=== PATIENT | male | born 1945 | race Caucasian/White ===

== ENCOUNTER 2019-09-14 09:15 | Inpatient (IN) ==
[2019-09-14] MEDS ORDERED: Ondansetron 4 MG/2 ML VIAL IVP ONE (09:20)
[2019-09-14] MEDS ORDERED: *HR* FentaNYL (PF) 100 MCG/2 ML VIAL IVP ONE (09:20)
[2019-09-14] MEDS ORDERED: Pantoprazole 40 MG VIAL IVP ONE (09:33)
[2019-09-14 10:03] LABS: Basophils % 0.4 %; Eosinophils % 0.4 %; Hematocrit 48.8 % (37.5-50.1); Hemoglobin 16.1 g/dL (12.9-16.9); Immature Granulocytes % 0.4 % (0-4); Lymphocytes # 1.3 K/mcL (0.6-4.6); Lymphocytes % 14.4 %; Mean Corpuscular Hemoglobin 31.3 pg (28.0-33.3); Mean Corpuscular Volume 94.8 fL (83.0-100.0); Mean Platelet Volume 12.5 fL (9.4-12.4); Monocytes # 1.1 K/mcL (0.0-1.3); Monocytes % 12.1 %; Neutrophils # 6.4 K/mcL (1.6-8.9); Platelet Count 240 K/mcL (140-400); Red Blood Count 5.15 M/mcL (4.19-5.50); Segmented Neutrophils % 72.3 %; White Blood Count 8.9 K/mcL (4.3-11.1)
[2019-09-14 10:14] LABS: Alanine Aminotransferase 41 Units/L (7-52); Alkaline Phosphatase 103 Units/L (34-104); Aspartate Amino Transferase 45 Units/L (13-39); BUN/Creatinine Ratio 22 (6-26); Bilirubin,Total 1.3 mg/dL (0.3-1.0); Blood Urea Nitrogen 29 mg/dL (8-23); Calcium 9.5 mg/dL (8.6-10.3); Carbon Dioxide 30 mEq/L (23-29); Chloride 91 mEq/L (98-107); Globulin 3.9 g/dL (2.4-3.5); Glucose 203 mg/dL (70-105); Lipase 41 Units/L (11-82); Osmolality,Calculated 284 (280-300); Potassium 4.2 mEq/L (3.5-5.1); Sodium 131 mEq/L (136-145); Total Protein 7.9 g/dL (6.4-8.9); eGFR For African Americans > 60 (> 60); eGFR For Non-African Americans 54 (> 60)
[2019-09-14 10:23] LABS: INR 1.3; Prothrombin Time 14.2 Seconds (9.4-12.1)
[2019-09-14] MEDS ORDERED: Promethazine 12.5 MG in 0.9 % Sodium Chloride 50 ML IVPB ONE (11:37)
[2019-09-14] MEDS ORDERED: 0.9 % Sodium Chloride 500 ML IVC ONE (12:06)
[2019-09-14] MEDS: Ondansetron 4 MG/2 ML VIAL IVP PRN (16:50)
[2019-09-15] MEDS: Ondansetron 4 MG/2 ML VIAL IVP PRN ×3 (00:44→22:22)
[2019-09-15 05:01] LABS: Hematocrit 46.2 % (37.5-50.1); Hemoglobin 15.3 g/dL (12.9-16.9); Mean Corpuscular HGB Conc 33.1 g/dL (31.6-35.5); Mean Corpuscular Hemoglobin 31.9 pg (28.0-33.3); Mean Corpuscular Volume 96.3 fL (83.0-100.0); Mean Platelet Volume 12.3 fL (9.4-12.4); Platelet Count 240 K/mcL (140-400); Red Cell Distribution Width 14.3 % (11.5-14.5); White Blood Count 8.9 K/mcL (4.3-11.1)
[2019-09-15 05:11] LABS: INR 1.2
[2019-09-15 05:21] LABS: Albumin 3.7 g/dL (3.5-5.7); Albumin/Globulin Ratio 1.1 (1.1-2.2); Bilirubin,Direct 0.4 mg/dL (0.0-0.2); Bilirubin,Indirect 0.7 mg/dL (0.0-1.0); Bilirubin,Total 1.1 mg/dL (0.3-1.0); Calcium 8.9 mg/dL (8.6-10.3); Globulin 3.4 g/dL (2.4-3.5); Magnesium 2.4 mg/dL (1.6-2.6); Potassium 3.8 mEq/L (3.5-5.1); Total Protein 7.1 g/dL (6.4-8.9)
[2019-09-15] MEDS ORDERED: *HR* Dextrose 50 % in Water (Syg) 50 ML SYRINGE IVP PRN ×2 (11:46→14:51)
[2019-09-15] MEDS ORDERED: D5% in Water 1,000 ML IVC PRN ×2 (11:46→14:51)
[2019-09-15] MEDS ORDERED: Dextrose Gel 15 GM/37.5 ML TUBE PO PRN ×4 (11:46→14:51)
[2019-09-15] MEDS ORDERED: Insulin LISPRO 300 UNITS/3 ML VIAL SQ SCH ×2 (12:00→18:00)
[2019-09-15] MEDS ORDERED: 0.9 % Sodium Chloride 1,000 ML IVC SCH ×2 (12:00→14:51)
[2019-09-15] MEDS ORDERED: Famotidine 20 MG/2 ML VIAL ONE (12:52)
[2019-09-15] MEDS ORDERED: Acetaminophen IV 1,000 MG/100 ML INFUS..BTL ONE (12:52)
[2019-09-15] MEDS ORDERED: Dexamethasone 4 MG/ML VIAL ONE (12:55)
[2019-09-15] MEDS ORDERED: *HR* Succinylcholine 200 MG/10 ML VIAL IVP ONE (12:55)
[2019-09-15] MEDS ORDERED: Lidocaine -MPF 2% 2 ML VIAL ONE (12:55)
[2019-09-15] MEDS ORDERED: Ondansetron 4 MG/2 ML VIAL ONE ×2 (12:55→14:35)
[2019-09-15] MEDS ORDERED: *HR* Propofol 200 MG/20 ML VIAL IVP ONE (12:55)
[2019-09-15] MEDS ORDERED: Lidocaine -MPF 4% 5 ML AMPUL ONE (12:55)
[2019-09-15] MEDS ORDERED: *HR* Rocuronium Bromide 50 MG/5 ML VIAL ONE (12:56)
[2019-09-15] MEDS ORDERED: CefOXitin 2,000 MG VIAL ONE (13:00)
[2019-09-15] MEDS ORDERED: *HR* FentaNYL (PF) 100 MCG/2 ML VIAL ONE (13:09)
[2019-09-15] MEDS ORDERED: *HR* PHENYLEPHRINE 1,000 MCG/10 ML SYRINGE IVP ONE ×2 (13:30→13:51)
[2019-09-15] MEDS ORDERED: EPHEDrine 50 MG/ML VIAL ONE (13:46)
[2019-09-15] MEDS ORDERED: Ondansetron 4 MG/2 ML VIAL IVP ONE (14:15)
[2019-09-15] MEDS ORDERED: *HR* HYDROmorphone PF 0.5 MG/0.5 ML SYRINGE IVP PRN (14:15)
[2019-09-15] MEDS: *HR* Heparin 5,000 UNIT/ML VIAL SQ SCH (16:45)
[2019-09-15] MEDS: Metoprolol XL (24 HR) Succ 25 MG TAB.ER.24H PO SCH (16:46)
[2019-09-15] MEDS ORDERED: Metoprolol XL (24 HR) Succ 25 MG TAB.ER.24H PO SCH (18:00)
[2019-09-15] MEDS ORDERED: *HR* Heparin 5,000 UNIT/ML VIAL SQ SCH (18:00)
[2019-09-15] MEDS: Budesonide/Formoterol 160/4.5 1 PUFF INH IH SCH (21:54)
[2019-09-15] MEDS ORDERED: Budesonide/Formoterol 160/4.5 1 PUFF INH IH SCH (22:00)
[2019-09-16 02:06] LABS: Basophils # 0.1 K/mcL (0.0-0.2); Basophils % 0.6 %; Eosinophils % 0.4 %; Hematocrit 47.3 % (37.5-50.1); Hemoglobin 15.6 g/dL (12.9-16.9); Immature Granulocytes % 0.3 % (0-4); Lymphocytes # 0.7 K/mcL (0.6-4.6); Lymphocytes % 8.2 %; Mean Corpuscular Hemoglobin 32.3 pg (28.0-33.3); Mean Corpuscular Volume 97.9 fL (83.0-100.0); Mean Platelet Volume 12.1 fL (9.4-12.4); Monocytes # 0.6 K/mcL (0.0-1.3); Monocytes % 6.7 %; Neutrophils # 7.6 K/mcL (1.6-8.9); Platelet Count 273 K/mcL (140-400); Red Blood Count 4.83 M/mcL (4.19-5.50); Red Cell Distribution Width 14.2 % (11.5-14.5); Segmented Neutrophils % 83.8 %; White Blood Count 9.1 K/mcL (4.3-11.1)
[2019-09-16 02:25] LABS: BUN/Creatinine Ratio 28 (6-26); Blood Urea Nitrogen 36 mg/dL (8-23); Calcium 8.9 mg/dL (8.6-10.3); Carbon Dioxide 24 mEq/L (23-29); Chloride 97 mEq/L (98-107); Glucose 146 mg/dL (70-105); Osmolality,Calculated 287 (280-300); Potassium 4.3 mEq/L (3.5-5.1); Sodium 133 mEq/L (136-145); eGFR For African Americans > 60 (> 60); eGFR For Non-African Americans 56 (> 60)
[2019-09-16] MEDS ORDERED: *HR* Promethazine 25 MG/ML VIAL IVP ONE (02:38)
[2019-09-16] MEDS: *HR* Heparin 5,000 UNIT/ML VIAL SQ SCH ×2 (05:36→17:17)
[2019-09-16] MEDS: Budesonide/Formoterol 160/4.5 1 PUFF INH IH SCH ×2 (07:30→20:07)
[2019-09-16] MEDS: Tiotropium 18 MCG inhalation IH SCH (07:30)
[2019-09-16] MEDS: Insulin LISPRO 300 UNITS/3 ML VIAL SQ SCH ×4 (07:54→21:31)
[2019-09-16] MEDS: Cholecalciferol (D-3) 1,000 UNIT (25MCG) TABLET PO SCH (07:55)
[2019-09-16] MEDS: Aspirin Enteric Coated 81 MG Tablet PO SCH (07:55)
[2019-09-16] MEDS: allopurinoL 100 MG TABLET PO SCH (07:55)
[2019-09-16] MEDS: Metoprolol XL (24 HR) Succ 50 MG TAB.ER.24H PO SCH (07:55)
[2019-09-16] MEDS: Ondansetron 4 MG/2 ML VIAL IVP PRN (09:00)
[2019-09-16] MEDS ORDERED: Tiotropium 18 MCG inhalation IH SCH (09:00)
[2019-09-16] MEDS ORDERED: Cholecalciferol (D-3) 1,000 UNIT (25MCG) TABLET PO SCH (09:00)
[2019-09-16] MEDS ORDERED: Metoprolol XL (24 HR) Succ 50 MG TAB.ER.24H PO SCH (09:00)
[2019-09-16] MEDS ORDERED: Aspirin Enteric Coated 81 MG Tablet PO SCH (09:00)
[2019-09-16] MEDS ORDERED: allopurinoL 100 MG TABLET PO SCH (09:00)
[2019-09-16] MEDS: polyethylene glycoL 3350 17 GM POWD.PACK PO SCH (09:06)
[2019-09-16] MEDS ORDERED: *HR* Promethazine 25 MG/ML VIAL IVP PRN (12:30)
[2019-09-16] MEDS ORDERED: Promethazine 25 MG in 0.9 % Sodium Chloride 50 ML IVPB PRN (12:38)
[2019-09-16] MEDS: Metoprolol XL (24 HR) Succ 25 MG TAB.ER.24H PO SCH (17:17)
[2019-09-16] MEDS ORDERED: Melatonin 3 MG TABLET PO ONE (22:50)
[2019-09-17] MEDS: *HR* Heparin 5,000 UNIT/ML VIAL SQ SCH ×2 (05:38→16:53)
[2019-09-17 07:01] LABS: Basophils # 0.1 K/mcL (0.0-0.2); Basophils % 0.8 %; Eosinophils # 0.2 K/mcL (0.0-0.6); Eosinophils % 2.4 %; Hematocrit 42.7 % (37.5-50.1); Immature Granulocytes % 0.4 % (0-4); Lymphocytes # 1.1 K/mcL (0.6-4.6); Lymphocytes % 14.4 %; Mean Corpuscular HGB Conc 31.6 g/dL (31.6-35.5); Mean Corpuscular Hemoglobin 30.9 pg (28.0-33.3); Mean Corpuscular Volume 97.7 fL (83.0-100.0); Monocytes % 13.8 %; Neutrophils # 5.1 K/mcL (1.6-8.9); Platelet Count 174 K/mcL (140-400); Red Blood Count 4.37 M/mcL (4.19-5.50); Red Cell Distribution Width 14.4 % (11.5-14.5); Segmented Neutrophils % 68.2 %; White Blood Count 7.5 K/mcL (4.3-11.1)
[2019-09-17 07:03] LABS: Hemoglobin 13.5 g/dL (12.9-16.9)
[2019-09-17 07:19] LABS: Calcium 8.2 mg/dL (8.6-10.3)
[2019-09-17] MEDS: Budesonide/Formoterol 160/4.5 1 PUFF INH IH SCH ×2 (07:50→20:39)
[2019-09-17] MEDS: Tiotropium 18 MCG inhalation IH SCH (07:54)
[2019-09-17] MEDS: Aspirin Enteric Coated 81 MG Tablet PO SCH (08:31)
[2019-09-17] MEDS: polyethylene glycoL 3350 17 GM POWD.PACK PO SCH (08:32)
[2019-09-17] MEDS: Cholecalciferol (D-3) 1,000 UNIT (25MCG) TABLET PO SCH (08:32)
[2019-09-17] MEDS: Metoprolol XL (24 HR) Succ 50 MG TAB.ER.24H PO SCH (08:32)
[2019-09-17] MEDS: Insulin LISPRO 300 UNITS/3 ML VIAL SQ SCH ×4 (08:32→20:38)
[2019-09-17] MEDS: allopurinoL 100 MG TABLET PO SCH (08:32)
[2019-09-17] MEDS ORDERED: Mag Hydrox/Al Hydrox/Simeth 30 ML UDC PO PRN (16:39)
[2019-09-17] MEDS: Ondansetron 4 MG/2 ML VIAL IVP PRN (16:49)
[2019-09-17] MEDS: Metoprolol XL (24 HR) Succ 25 MG TAB.ER.24H PO SCH (16:54)
[2019-09-17] MEDS ORDERED: Promethazine 25 MG in 0.9 % Sodium Chloride 50 ML IVPB PRN (19:30)
[2019-09-18] MEDS: *HR* Heparin 5,000 UNIT/ML VIAL SQ SCH ×2 (05:11→17:00)
[2019-09-18 05:42] LABS: Hematocrit 42.2 % (37.5-50.1); Hemoglobin 13.5 g/dL (12.9-16.9); Mean Corpuscular Hemoglobin 31.3 pg (28.0-33.3); Mean Corpuscular Volume 97.7 fL (83.0-100.0); Mean Platelet Volume 11.9 fL (9.4-12.4); Platelet Count 241 K/mcL (140-400); Red Blood Count 4.32 M/mcL (4.19-5.50); Red Cell Distribution Width 14.1 % (11.5-14.5); White Blood Count 8.1 K/mcL (4.3-11.1)
[2019-09-18 05:59] LABS: Calcium 8.3 mg/dL (8.6-10.3); Magnesium 2.7 mg/dL (1.6-2.6); Potassium 3.9 mEq/L (3.5-5.1)
[2019-09-18] MEDS: Budesonide/Formoterol 160/4.5 1 PUFF INH IH SCH ×2 (07:46→20:06)
[2019-09-18] MEDS: Tiotropium 18 MCG inhalation IH SCH (07:46)
[2019-09-18] MEDS: Insulin LISPRO 300 UNITS/3 ML VIAL SQ SCH ×4 (09:27→20:16)
[2019-09-18] MEDS: Aspirin Enteric Coated 81 MG Tablet PO SCH (09:32)
[2019-09-18] MEDS: Metoprolol XL (24 HR) Succ 50 MG TAB.ER.24H PO SCH (09:32)
[2019-09-18] MEDS: Cholecalciferol (D-3) 1,000 UNIT (25MCG) TABLET PO SCH (09:33)
[2019-09-18] MEDS: allopurinoL 100 MG TABLET PO SCH (09:33)
[2019-09-18] MEDS: polyethylene glycoL 3350 17 GM POWD.PACK PO SCH (09:33)
[2019-09-18] MEDS: Metoprolol XL (24 HR) Succ 25 MG TAB.ER.24H PO SCH (17:00)
[2019-09-19 03:12] LABS: BUN/Creatinine Ratio 49 (6-26); Blood Urea Nitrogen 43 mg/dL (8-23); Calcium 8.4 mg/dL (8.6-10.3); Carbon Dioxide 28 mEq/L (23-29); Chloride 96 mEq/L (98-107); Glucose 127 mg/dL (70-105); Osmolality,Calculated 288 (280-300); Potassium 3.9 mEq/L (3.5-5.1); Sodium 133 mEq/L (136-145); eGFR For African Americans > 60 (> 60); eGFR For Non-African Americans > 60 (> 60)
[2019-09-19] MEDS: *HR* Heparin 5,000 UNIT/ML VIAL SQ SCH (05:42)
[2019-09-19] MEDS: Tiotropium 18 MCG inhalation IH SCH (07:56)
[2019-09-19] MEDS: Budesonide/Formoterol 160/4.5 1 PUFF INH IH SCH (07:56)
[2019-09-19] MEDS ORDERED: Metoprolol XL (24 HR) Succ 25 MG TAB.ER.24H PO SCH (09:00)
[2019-09-19] MEDS: polyethylene glycoL 3350 17 GM POWD.PACK PO SCH (09:40)
[2019-09-19] MEDS: Aspirin Enteric Coated 81 MG Tablet PO SCH (09:43)
[2019-09-19] MEDS: allopurinoL 100 MG TABLET PO SCH (09:43)
[2019-09-19] MEDS: Insulin LISPRO 300 UNITS/3 ML VIAL SQ SCH ×2 (09:43→12:59)
[2019-09-19] MEDS: Cholecalciferol (D-3) 1,000 UNIT (25MCG) TABLET PO SCH (09:43)
[2019-09-19 14:14] VITALS: BP 122/74
== END 2019-09-19 15:34 | DRG 354 ==
LOC: 3ANU 09:15 → EMEROOARM 09:15 → SUATTDRO 13:28 → 3ANU 14:42 → SUATTDRO 09-15 16:21
PROVIDERS: ADMIT Internal Medicine; ATTEND Internal Medicine

== ENCOUNTER 2020-05-27 06:42 | Inpatient (IN) ==
[2020-05-27] MEDS ORDERED: CeFAZolin Syr 3,000MG/30 ML 3,000 MG/30 ML SYRINGE IVPB ONE (07:21)
[2020-05-27] MEDS ORDERED: Ringers Solution, Lactated 1,000 ML IVC SCH (07:30)
[2020-05-27] MEDS ORDERED: Dexamethasone 4 MG/ML VIAL ONE (07:39)
[2020-05-27] MEDS ORDERED: Lidocaine -MPF 2% 2 ML VIAL ONE (07:39)
[2020-05-27] MEDS ORDERED: *HR* Succinylcholine 200 MG/10 ML VIAL IVP ONE (07:39)
[2020-05-27] MEDS ORDERED: *HR* FentaNYL (PF) 100 MCG/2 ML VIAL ONE ×2 (07:39→10:11)
[2020-05-27] MEDS ORDERED: *HR* Rocuronium Bromide 50 MG/5 ML VIAL ONE (07:39)
[2020-05-27] MEDS ORDERED: Ondansetron 4 MG/2 ML VIAL ONE (07:39)
[2020-05-27] MEDS ORDERED: *HR* Propofol 200 MG/20 ML VIAL IVP ONE (07:40)
[2020-05-27] MEDS ORDERED: Sugammadex Sodium 200 MG/2 ML VIAL IV ONE (07:40)
[2020-05-27] MEDS ORDERED: *HR* PHENYLEPHRINE 1,000 MCG/10 ML SYRINGE IVP ONE ×2 (07:41→09:49)
[2020-05-27] MEDS ORDERED: Ketorolac 30 MG/ML VIAL ONE (07:41)
[2020-05-27] MEDS ORDERED: Lidocaine 5% OINT 35 APPL/35.44 GM TUBE TP ONE (07:52)
[2020-05-27] MEDS ORDERED: *HR* HYDROmorphone 2 MG TABLET PO PRN (08:00)
[2020-05-27] MEDS ORDERED: Famotidine 20 MG/2 ML VIAL IVP ONE (08:00)
[2020-05-27] MEDS ORDERED: *HR* Labetalol 20 MG/4 ML SYRINGE IVP PRN (08:00)
[2020-05-27] MEDS ORDERED: *HR* OxyCODONE Immed Rel 5 MG TABLET PO PRN (08:00)
[2020-05-27] MEDS ORDERED: *HR* HYDROmorphone PF 0.5 MG/0.5 ML SYRINGE IVP PRN (08:00)
[2020-05-27] MEDS ORDERED: Acetaminophen IV 1,000 MG/100 ML BAG IVPB ONE (08:00)
[2020-05-27] MEDS ORDERED: Naloxone 0.4 MG/ML INJ IVP PRN (10:31)
[2020-05-27] MEDS ORDERED: *HR* HYDROcodone/Acet 5/325 mg TABLET PO PRN (10:31)
[2020-05-27] MEDS ORDERED: Ondansetron 4 MG/2 ML VIAL IVP PRN ×2 (10:31→11:56)
[2020-05-27] MEDS ORDERED: 0.9 % Sodium Chloride 1,000 ML IVC SCH (10:45)
[2020-05-27] MEDS ORDERED: *HR* Dextrose 50 % in Water (Vial) 50 ML VIAL IVP PRN (11:56)
[2020-05-27] MEDS ORDERED: Dextrose Gel 15 GM/37.5 ML TUBE PO PRN ×2 (11:56)
[2020-05-27] MEDS ORDERED: D5% in Water 1,000 ML IVC PRN (11:56)
[2020-05-27] MEDS ORDERED: Ipratropium/Albuterol Neb 3 ML IH SCH (12:00)
[2020-05-27] MEDS ORDERED: Ketorolac 15 MG/ML VIAL IVP SCH (12:00)
[2020-05-27] MEDS: Ketorolac 15 MG/ML VIAL IVP SCH ×2 (12:18→18:06)
[2020-05-27] MEDS: Insulin LISPRO 300 UNITS/3 ML VIAL SUBQ SCH ×3 (12:19→20:44)
[2020-05-27] MEDS: 0.9 % Sodium Chloride 1,000 ML IVC SCH (12:19)
[2020-05-27] MEDS: *HR* Heparin 5,000 UNIT/ML VIAL SQ SCH ×2 (12:20→20:56)
[2020-05-27] MEDS ORDERED: *HR* Heparin 5,000 UNIT/ML VIAL SQ SCH (14:00)
[2020-05-27] MEDS: Ipratropium/Albuterol Neb 3 ML IH SCH ×4 (14:14→23:41)
[2020-05-27] MEDS: *HR* HYDROcodone/Acet 5/325 mg TABLET PO PRN ×2 (14:39→20:50)
[2020-05-27] MEDS: Gabapentin 300 MG CAPSULE PO SCH ×2 (14:40→20:50)
[2020-05-27] MEDS ORDERED: Gabapentin 300 MG CAPSULE PO SCH (15:00)
[2020-05-27] MEDS ORDERED: *HR* Metformin 500 MG TABLET PO SCH (17:00)
[2020-05-27] MEDS: Budesonide/Formoterol 160/4.5 1 PUFF INH IH SCH (20:17)
[2020-05-27] MEDS: Sennosides/Docusate Sodium TABLET PO SCH (20:50)
[2020-05-27] MEDS: Famotidine 20 MG TABLET PO SCH (20:50)
[2020-05-27] MEDS: *HR* Metformin 500 MG TABLET PO SCH (20:52)
[2020-05-27] MEDS ORDERED: Sennosides/Docusate Sodium TABLET PO SCH (21:00)
[2020-05-27] MEDS ORDERED: Famotidine 20 MG TABLET PO SCH (21:00)
[2020-05-27] MEDS ORDERED: Budesonide/Formoterol 160/4.5 1 PUFF INH IH SCH (22:00)
[2020-05-28] MEDS: Ketorolac 15 MG/ML VIAL IVP SCH ×5 (00:59→23:32)
[2020-05-28] MEDS: 0.9 % Sodium Chloride 1,000 ML IVC SCH (01:48)
[2020-05-28 02:37] LABS: Hematocrit 38.3 % (37.5-50.1); Mean Corpuscular HGB Conc 30.8 g/dL (31.6-35.5); Mean Corpuscular Hemoglobin 29.4 pg (28.0-33.3); Mean Corpuscular Volume 95.3 fL (83.0-100.0); Mean Platelet Volume 12.5 fL (9.4-12.4); Platelet Count 142 K/mcL (140-400); Red Blood Count 4.02 M/mcL (4.19-5.50); Red Cell Distribution Width 15.9 % (11.5-14.5); White Blood Count 7.8 K/mcL (4.3-11.1)
[2020-05-28 02:38] LABS: Hemoglobin 11.8 g/dL (12.9-16.9)
[2020-05-28 02:58] LABS: % Iron Saturation 10 % (20-55); BUN/Creatinine Ratio 24 (6-26); Blood Urea Nitrogen 17 mg/dL (8-23); Calcium 9.1 mg/dL (8.6-10.3); Carbon Dioxide 27 mEq/L (23-29); Chloride 104 mEq/L (98-107); Glucose 158 mg/dL (70-105); Iron 31 mcg/dL (65-175); Osmolality,Calculated 291 (280-300); Potassium 4.4 mEq/L (3.5-5.1); Sodium 138 mEq/L (136-145); Transferrin 230 mg/dL (203-362); eGFR For African Americans > 60 (> 60); eGFR For Non-African Americans > 60 (> 60)
[2020-05-28] MEDS: Ipratropium/Albuterol Neb 3 ML IH SCH ×6 (03:52→23:10)
[2020-05-28] MEDS: *HR* Heparin 5,000 UNIT/ML VIAL SQ SCH ×3 (06:01→20:32)
[2020-05-28] MEDS: Budesonide/Formoterol 160/4.5 1 PUFF INH IH SCH ×2 (07:56→23:09)
[2020-05-28] MEDS: Gabapentin 300 MG CAPSULE PO SCH ×3 (08:09→20:32)
[2020-05-28] MEDS: *HR* Metformin 500 MG TABLET PO SCH ×2 (08:09→20:32)
[2020-05-28] MEDS: Aspirin Enteric Coated 81 MG Tablet PO SCH (08:09)
[2020-05-28] MEDS: Famotidine 20 MG TABLET PO SCH ×2 (08:09→20:33)
[2020-05-28] MEDS: *HR* HYDROcodone/Acet 5/325 mg TABLET PO PRN ×3 (08:10→20:32)
[2020-05-28] MEDS: Sennosides/Docusate Sodium TABLET PO SCH ×2 (08:10→20:32)
[2020-05-28] MEDS: allopurinoL 100 MG TABLET PO SCH (08:10)
[2020-05-28] MEDS: Insulin LISPRO 300 UNITS/3 ML VIAL SUBQ SCH ×4 (08:14→20:23)
[2020-05-28] MEDS ORDERED: Aspirin Enteric Coated 81 MG Tablet PO SCH (09:00)
[2020-05-28] MEDS ORDERED: allopurinoL 100 MG TABLET PO SCH (09:00)
[2020-05-28] MEDS ORDERED: Iron Sucrose Complex 400 MG in 0.9 % Sodium Chloride 250 ML IVPB ONE (11:00)
[2020-05-29] MEDS: Ipratropium/Albuterol Neb 3 ML IH SCH ×6 (04:10→23:58)
[2020-05-29] MEDS: *HR* Heparin 5,000 UNIT/ML VIAL SQ SCH ×3 (05:47→20:39)
[2020-05-29] MEDS: *HR* HYDROcodone/Acet 5/325 mg TABLET PO PRN ×4 (05:47→20:37)
[2020-05-29] MEDS: Ketorolac 15 MG/ML VIAL IVP SCH ×4 (05:48→23:26)
[2020-05-29] MEDS: Budesonide/Formoterol 160/4.5 1 PUFF INH IH SCH ×2 (07:42→20:45)
[2020-05-29] MEDS: Sennosides/Docusate Sodium TABLET PO SCH ×2 (08:08→20:39)
[2020-05-29] MEDS: Famotidine 20 MG TABLET PO SCH ×2 (08:08→20:38)
[2020-05-29] MEDS: Aspirin Enteric Coated 81 MG Tablet PO SCH (08:08)
[2020-05-29] MEDS: allopurinoL 100 MG TABLET PO SCH (08:08)
[2020-05-29] MEDS: Gabapentin 300 MG CAPSULE PO SCH ×3 (08:09→20:38)
[2020-05-29] MEDS: Insulin LISPRO 300 UNITS/3 ML VIAL SUBQ SCH ×4 (08:09→20:22)
[2020-05-29] MEDS: *HR* Metformin 500 MG TABLET PO SCH ×2 (08:09→20:38)
[2020-05-29] MEDS: Furosemide 40 MG/4 ML VIAL IVP SCH (14:58)
[2020-05-30 04:05] LABS: Basophils # 0.1 K/mcL (0.0-0.2); Basophils % 0.9 %; Eosinophils # 0.2 K/mcL (0.0-0.6); Eosinophils % 3.8 %; Hematocrit 38.2 % (37.5-50.1); Hemoglobin 11.7 g/dL (12.9-16.9); Immature Granulocytes % 0.4 % (0-4); Lymphocytes # 0.9 K/mcL (0.6-4.6); Lymphocytes % 15.3 %; Mean Corpuscular HGB Conc 30.6 g/dL (31.6-35.5); Mean Corpuscular Hemoglobin 28.8 pg (28.0-33.3); Mean Corpuscular Volume 94.1 fL (83.0-100.0); Mean Platelet Volume 12.2 fL (9.4-12.4); Monocytes # 0.6 K/mcL (0.0-1.3); Neutrophils # 3.8 K/mcL (1.6-8.9); Platelet Count 159 K/mcL (140-400); Red Blood Count 4.06 M/mcL (4.19-5.50); Red Cell Distribution Width 15.9 % (11.5-14.5); Segmented Neutrophils % 68.6 %; White Blood Count 5.5 K/mcL (4.3-11.1)
[2020-05-30 04:30] LABS: BUN/Creatinine Ratio 42 (6-26); Blood Urea Nitrogen 24 mg/dL (8-23); Calcium 9.5 mg/dL (8.6-10.3); Carbon Dioxide 27 mEq/L (23-29); Chloride 102 mEq/L (98-107); Glucose 119 mg/dL (70-105); Osmolality,Calculated 287 (280-300); Potassium 4.4 mEq/L (3.5-5.1); Sodium 136 mEq/L (136-145); eGFR For African Americans > 60 (> 60); eGFR For Non-African Americans > 60 (> 60)
[2020-05-30] MEDS: Ipratropium/Albuterol Neb 3 ML IH SCH ×6 (04:33→23:37)
[2020-05-30] MEDS: Ketorolac 15 MG/ML VIAL IVP SCH ×3 (06:27→17:03)
[2020-05-30] MEDS: *HR* Heparin 5,000 UNIT/ML VIAL SQ SCH ×3 (06:27→20:18)
[2020-05-30] MEDS: Budesonide/Formoterol 160/4.5 1 PUFF INH IH SCH ×2 (07:31→20:37)
[2020-05-30] MEDS: Famotidine 20 MG TABLET PO SCH ×2 (08:03→20:17)
[2020-05-30] MEDS: *HR* Metformin 500 MG TABLET PO SCH ×2 (08:03→20:17)
[2020-05-30] MEDS: Aspirin Enteric Coated 81 MG Tablet PO SCH (08:03)
[2020-05-30] MEDS: allopurinoL 100 MG TABLET PO SCH (08:03)
[2020-05-30] MEDS: Sennosides/Docusate Sodium TABLET PO SCH ×2 (08:03→20:17)
[2020-05-30] MEDS: *HR* HYDROcodone/Acet 5/325 mg TABLET PO PRN ×3 (08:04→20:16)
[2020-05-30] MEDS: Gabapentin 300 MG CAPSULE PO SCH ×3 (08:04→20:17)
[2020-05-30] MEDS: Insulin LISPRO 300 UNITS/3 ML VIAL SUBQ SCH ×4 (08:04→20:05)
[2020-05-30] MEDS: Furosemide 40 MG/4 ML VIAL IVP SCH (08:04)
[2020-05-30] MEDS: Magnesium Oxide 400 MG TABLET PO SCH ×2 (15:07→20:17)
[2020-05-31] MEDS: Ketorolac 15 MG/ML VIAL IVP SCH ×3 (00:14→12:37)
[2020-05-31] MEDS: Ipratropium/Albuterol Neb 3 ML IH SCH ×3 (04:18→11:28)
[2020-05-31] MEDS: *HR* Heparin 5,000 UNIT/ML VIAL SQ SCH (05:45)
[2020-05-31] MEDS: Budesonide/Formoterol 160/4.5 1 PUFF INH IH SCH (07:24)
[2020-05-31] MEDS: Insulin LISPRO 300 UNITS/3 ML VIAL SUBQ SCH ×2 (08:01→12:36)
[2020-05-31] MEDS: Sennosides/Docusate Sodium TABLET PO SCH (08:06)
[2020-05-31] MEDS: Gabapentin 300 MG CAPSULE PO SCH ×2 (08:06→14:44)
[2020-05-31] MEDS: allopurinoL 100 MG TABLET PO SCH (08:06)
[2020-05-31] MEDS: Famotidine 20 MG TABLET PO SCH (08:07)
[2020-05-31] MEDS: Furosemide 40 MG/4 ML VIAL IVP SCH (08:07)
[2020-05-31] MEDS: *HR* Metformin 500 MG TABLET PO SCH (08:07)
[2020-05-31] MEDS: Magnesium Oxide 400 MG TABLET PO SCH (08:08)
[2020-05-31] MEDS: Aspirin Enteric Coated 81 MG Tablet PO SCH (08:08)
[2020-05-31] MEDS: *HR* HYDROcodone/Acet 5/325 mg TABLET PO PRN ×2 (11:24→14:45)
[2020-05-31 11:49] VITALS: BP 111/78
== END 2020-05-31 15:08 | disposition home or self-care (01) | DRG 164 ==
LOC: SAMDAY 06:42 → 2NNU 11:30
PROVIDERS: ADMIT Thoracic Surgery (Cardiothoracic Vascular Surgery); ATTEND Thoracic Surgery (Cardiothoracic Vascular Surgery)

== ENCOUNTER 2020-07-16 16:08 | Observation (INO) ==
[2020-07-16] MEDS ORDERED: Naloxone 0.4 MG/ML INJ IVP PRN (17:46)
[2020-07-16] MEDS ORDERED: MOM Conc 10 ML UD.LIQ PO PRN (17:46)
[2020-07-16] MEDS ORDERED: Ondansetron ODT 4 MG TAB.RAPDIS SL PRN (17:46)
[2020-07-16] MEDS ORDERED: Melatonin 3 MG TABLET PO PRN (17:46)
[2020-07-16] MEDS ORDERED: Mag Hydrox/Al Hydrox/Simeth 30 ML UDC PO PRN (17:46)
[2020-07-16] MEDS ORDERED: D5% in Water 1,000 ML IVC PRN (17:48)
[2020-07-16] MEDS ORDERED: Perflutren Lipid Microsphere 1.3 ML in 0.9 % Sodium Chloride 8.7 ML IVP PRN (17:48)
[2020-07-16] MEDS ORDERED: *HR* Dextrose 50 % in Water (Vial) 50 ML VIAL IVP PRN (17:48)
[2020-07-16] MEDS ORDERED: Dextrose Gel 15 GM/37.5 ML TUBE PO PRN ×2 (17:48)
[2020-07-16] MEDS ORDERED: Furosemide 40 MG/4 ML VIAL IVP ONE (17:51)
[2020-07-16] MEDS ORDERED: *HR* OxyCODONE Immed Rel 5 MG TABLET PO PRN (18:16)
[2020-07-16] MEDS: Budesonide/Formoterol 160/4.5 1 PUFF INH IH SCH ×2 (19:53→19:54)
[2020-07-16] MEDS: Insulin LISPRO 300 UNITS/3 ML VIAL SUBQ SCH (20:45)
[2020-07-17 00:30] LABS: Hematocrit 39.8 % (37.5-50.1); Hemoglobin 12.1 g/dL (12.9-16.9); Mean Corpuscular HGB Conc 30.4 g/dL (31.6-35.5); Mean Corpuscular Hemoglobin 30.1 pg (28.0-33.3); Mean Platelet Volume 11.5 fL (9.4-12.4); Platelet Count 182 K/mcL (140-400); Red Blood Count 4.02 M/mcL (4.19-5.50); Red Cell Distribution Width 15.2 % (11.5-14.5); White Blood Count 6.2 K/mcL (4.3-11.1)
[2020-07-17 00:47] LABS: Alanine Aminotransferase 14 Units/L (7-52); Albumin 3.9 g/dL (3.5-5.7); Albumin/Globulin Ratio 1.1 (1.1-2.2); Alkaline Phosphatase 126 Units/L (34-104); Aspartate Amino Transferase 22 Units/L (13-39); BUN/Creatinine Ratio 24 (6-26); Bilirubin,Total 0.6 mg/dL (0.3-1.0); Blood Urea Nitrogen 19 mg/dL (8-23); Calcium 9.5 mg/dL (8.6-10.3); Carbon Dioxide 28 mEq/L (23-29); Chloride 106 mEq/L (98-107); Globulin 3.6 g/dL (2.4-3.5); Glucose 122 mg/dL (70-105); Osmolality,Calculated 296 (280-300); Potassium 3.9 mEq/L (3.5-5.1); Sodium 141 mEq/L (136-145); Total Protein 7.5 g/dL (6.4-8.9); eGFR For African Americans > 60 (> 60); eGFR For Non-African Americans > 60 (> 60)
[2020-07-17] MEDS: *HR* Enoxaparin 40 MG/0.4 ML SYRINGE SQ SCH (05:05)
[2020-07-17] MEDS: Budesonide/Formoterol 160/4.5 1 PUFF INH IH SCH ×2 (07:15→19:28)
[2020-07-17] MEDS: Furosemide 40 MG/4 ML VIAL IVP SCH (09:03)
[2020-07-17] MEDS: Aspirin Enteric Coated 81 MG Tablet PO SCH (09:03)
[2020-07-17] MEDS: Insulin LISPRO 300 UNITS/3 ML VIAL SUBQ SCH ×4 (09:03→21:00)
[2020-07-18] MEDS: *HR* Enoxaparin 40 MG/0.4 ML SYRINGE SQ SCH (05:57)
[2020-07-18] MEDS: Budesonide/Formoterol 160/4.5 1 PUFF INH IH SCH ×2 (07:37→19:52)
[2020-07-18] MEDS: Insulin LISPRO 300 UNITS/3 ML VIAL SUBQ SCH ×4 (08:42→19:56)
[2020-07-18] MEDS: Aspirin Enteric Coated 81 MG Tablet PO SCH (09:00)
[2020-07-18] MEDS: Furosemide 40 MG/4 ML VIAL IVP SCH (12:33)
[2020-07-18] MEDS: lisinopriL 5 MG TABLET PO SCH (12:33)
[2020-07-19] MEDS: *HR* Enoxaparin 40 MG/0.4 ML SYRINGE SQ SCH (06:16)
[2020-07-19] MEDS: Insulin LISPRO 300 UNITS/3 ML VIAL SUBQ SCH ×2 (07:11→11:18)
[2020-07-19] MEDS: Aspirin Enteric Coated 81 MG Tablet PO SCH (07:21)
[2020-07-19] MEDS: Furosemide 40 MG/4 ML VIAL IVP SCH (07:22)
[2020-07-19] MEDS: lisinopriL 5 MG TABLET PO SCH (07:23)
[2020-07-19] MEDS: Budesonide/Formoterol 160/4.5 1 PUFF INH IH SCH (08:13)
[2020-07-19] MEDS ORDERED: Metoprolol XL (24 HR) Succ 25 MG TAB.ER.24H PO SCH ×2 (09:00→21:00)
[2020-07-19 11:13] VITALS: BP 124/84
== END 2020-07-19 14:07 | disposition home or self-care (01) ==
LOC: 2ANU 16:08 → EMEROOARM 16:08 → 2ANU 18:18
PROVIDERS: ADMIT Internal Medicine; ATTEND Internal Medicine

== ENCOUNTER 2021-07-10 01:55 | Inpatient (IN) ==
[2021-07-10] MEDS ORDERED: 0.9 % Sodium Chloride 1,000 ML IVC ONE ×2 (02:02→04:26)
[2021-07-10] MEDS ORDERED: Pantoprazole 80 MG in 0.9 % Sodium Chloride 50 ML IVPB ONE (02:04)
[2021-07-10 02:53] LABS: Basophils # 0.1 K/mcL (0.0-0.2); Basophils % 0.6 %; Hematocrit 29.7 % (37.5-50.1); Hemoglobin 9.7 g/dL (12.9-16.9); Immature Granulocytes % 3.4 % (0-4); Lymphocytes % 4.5 %; Mean Corpuscular HGB Conc 32.7 g/dL (31.6-35.5); Mean Corpuscular Hemoglobin 31.4 pg (28.0-33.3); Mean Corpuscular Volume 96.1 fL (83.0-100.0); Mean Platelet Volume 12.5 fL (9.4-12.4); Monocytes # 1.1 K/mcL (0.0-1.3); Monocytes % 5.3 %; Neutrophils # 18.5 K/mcL (1.6-8.9); Platelet Count 252 K/mcL (140-400); Red Blood Count 3.09 M/mcL (4.19-5.50); Red Cell Distribution Width 13.7 % (11.5-14.5); Segmented Neutrophils % 86.2 %; White Blood Count 21.5 K/mcL (4.3-11.1)
[2021-07-10 03:01] LABS: INR 1.7; Prothrombin Time 18.9 Seconds (9.4-12.1)
[2021-07-10 03:17] LABS: Albumin 3.4 g/dL (3.5-5.7); Albumin/Globulin Ratio 1.5 (1.1-2.2); Bilirubin,Direct 0.1 mg/dL (0.0-0.2); Bilirubin,Indirect 0.4 mg/dL (0.0-1.0); Bilirubin,Total 0.5 mg/dL (0.3-1.0); Calcium 8.9 mg/dL (8.6-10.3); Globulin 2.2 g/dL (2.4-3.5); Potassium 4.5 mEq/L (3.5-5.1); Total Protein 5.6 g/dL (6.4-8.9); Troponin I 0.12 ng/mL (< 0.04)
[2021-07-10] MEDS ORDERED: *HR* HYDROmorphone (PF) 1 MG/ML SYRINGE IVP ONE (03:45)
[2021-07-10 04:38] LABS: Bilirubin,Urine Negative (Negative); Blood,Urine Negative (Negative); Clarity,Urine Clear (Clear); Color,Urine Light-Yellow (Yellow); Glucose,Urine (UA) >=1000 mg/dL (Normal); Ketones,Urine Trace mg/dL (Negative); Leukocyte Esterase,Urine Negative (Negative); Mucus,Urine Few per lpf (None-Few); Nitrite,Urine Negative (Negative); PH,Urine 5.5 pH Units (5.0-8.0); Protein,Urine Negative (Neg-Trace); RBC,Urine 0-3 per hpf (0-3); Specific Gravity,Urine 1.022 (1.010-1.025); Squamous Epithelial Cell,Urine Few per hpf (None-Few); Urobilinogen,Urine Normal (Normal); WBC,Urine 0-3 per hpf (0-3)
[2021-07-10] MEDS ORDERED: Ondansetron 4 MG/2 ML VIAL IVP PRN (05:12)
[2021-07-10] MEDS ORDERED: Naloxone 0.4 MG/ML INJ IVP PRN (05:12)
[2021-07-10] MEDS ORDERED: Morphine Sulfate 2 MG/ML SYRINGE IVP ONE (06:29)
[2021-07-10] MEDS ORDERED: Dextrose 4 GM Chewable Tablets PO PRN ×2 (06:40)
[2021-07-10] MEDS ORDERED: D5% in Water 1,000 ML IVC PRN (06:40)
[2021-07-10] MEDS ORDERED: *HR* Dextrose 50 % in Water (Syg) 50 ML SYRINGE IVP PRN (06:40)
[2021-07-10] MEDS ORDERED: 0.9 % Sodium Chloride 250 ML ONE ×2 (06:43→15:39)
[2021-07-10] MEDS: cefTRIAXone 1,000 MG in 0.9 % Sodium Chloride 10 ML IVP SCH (06:46)
[2021-07-10] MEDS ORDERED: Ipratropium/Albuterol Neb 3 ML IH PRN (07:14)
[2021-07-10 07:20] LABS: Hematocrit 27.9 % (37.5-50.1); Hemoglobin 9.3 g/dL (12.9-16.9)
[2021-07-10 08:02] LABS: Magnesium 1.9 mg/dL (1.6-2.6)
[2021-07-10 08:56] LABS: Bacteria,Urine Few per hpf (None-Few); Bilirubin,Urine Small (Negative); Blood,Urine Large (Negative); Clarity,Urine Turbid (Clear); Color,Urine Yellow (Yellow); Glucose,Urine (UA) 300 mg/dL (Normal); Hyaline Casts,Urine Few per lpf (None Seen); Ketones,Urine Negative (Negative); Leukocyte Esterase,Urine Trace (Negative); Mucus,Urine Few per lpf (None-Few); Nitrite,Urine Negative (Negative); PH,Urine 5.5 pH Units (5.0-8.0); Protein,Urine 30 mg/dL (Neg-Trace); RBC,Urine 50-100 per hpf (0-3); Specific Gravity,Urine 1.023 (1.010-1.025); Squamous Epithelial Cell,Urine Few per hpf (None-Few); Urobilinogen,Urine Normal (Normal)
[2021-07-10 09:24] LABS: Troponin I 0.35 ng/mL (< 0.04)
[2021-07-10] MEDS: Insulin LISPRO 300 UNITS/3 ML VIAL SUBQ SCH ×2 (12:11→17:38)
[2021-07-10] MEDS: Albumin 25% 25gram/100mL 25 GM/100 ML IV.SOLN IVC SCH ×2 (12:13→13:58)
[2021-07-10] MEDS: Pantoprazole 40 MG in 0.9 % Sodium Chloride Mini Bag 100 ML IVC SCH ×3 (12:15→22:20)
[2021-07-10] MEDS: Octreotide 400 MCG in 0.9 % Sodium Chloride 100 ML IVC SCH (12:38)
[2021-07-10] MEDS ORDERED: Pantoprazole 40 MG VIAL IVP SCH (18:00)
[2021-07-10 20:24] LABS: Hematocrit 23.7 % (37.5-50.1); Hemoglobin 7.8 g/dL (12.9-16.9); Mean Corpuscular HGB Conc 32.9 g/dL (31.6-35.5); Mean Corpuscular Hemoglobin 31.5 pg (28.0-33.3); Mean Corpuscular Volume 95.6 fL (83.0-100.0); Mean Platelet Volume 12.8 fL (9.4-12.4); Platelet Count 164 K/mcL (140-400); Red Blood Count 2.48 M/mcL (4.19-5.50); Red Cell Distribution Width 15.1 % (11.5-14.5)
[2021-07-11] MEDS: Insulin LISPRO 300 UNITS/3 ML VIAL SUBQ SCH ×4 (00:03→18:22)
[2021-07-11] MEDS: Pantoprazole 40 MG in 0.9 % Sodium Chloride Mini Bag 100 ML IVC SCH ×4 (03:03→19:59)
[2021-07-11] MEDS: Octreotide 400 MCG in 0.9 % Sodium Chloride 100 ML IVC SCH ×2 (03:15→21:31)
[2021-07-11 04:37] LABS: Basophils # 0.1 K/mcL (0.0-0.2); Basophils % 0.6 %; Eosinophils % 0.2 %; Hematocrit 21.9 % (37.5-50.1); Hemoglobin 7.1 g/dL (12.9-16.9); Immature Granulocytes % 1.5 % (0-4); Lymphocytes # 1.2 K/mcL (0.6-4.6); Lymphocytes % 9.6 %; Mean Corpuscular HGB Conc 32.4 g/dL (31.6-35.5); Mean Corpuscular Hemoglobin 30.7 pg (28.0-33.3); Mean Corpuscular Volume 94.8 fL (83.0-100.0); Mean Platelet Volume 12.6 fL (9.4-12.4); Monocytes # 1.2 K/mcL (0.0-1.3); Monocytes % 9.1 %; Nucleated Red Blood Cells 0.2 /100 WBC (0); Platelet Count 158 K/mcL (140-400); Red Blood Count 2.31 M/mcL (4.19-5.50); Red Cell Distribution Width 15.3 % (11.5-14.5); White Blood Count 12.7 K/mcL (4.3-11.1)
[2021-07-11 04:48] LABS: INR 1.5; Prothrombin Time 16.3 Seconds (9.4-12.1)
[2021-07-11 04:50] LABS: BUN/Creatinine Ratio 73 (6-26); Blood Urea Nitrogen 76 mg/dL (8-23); Calcium 8.8 mg/dL (8.6-10.3); Carbon Dioxide 23 mEq/L (23-29); Chloride 114 mEq/L (98-107); Glucose 153 mg/dL (70-105); Magnesium 2.1 mg/dL (1.6-2.6); Osmolality,Calculated 324 (280-300); Potassium 4.2 mEq/L (3.5-5.1); Sodium 144 mEq/L (136-145); eGFR For African Americans > 60 (> 60); eGFR For Non-African Americans > 60 (> 60)
[2021-07-11] MEDS: cefTRIAXone 1,000 MG in 0.9 % Sodium Chloride 10 ML IVP SCH (06:11)
[2021-07-11] MEDS ORDERED: Acetaminophen 325 MG TABLET PO PRN (13:25)
[2021-07-11 14:36] LABS: Hemoglobin 6.7 g/dL (12.9-16.9)
[2021-07-11 18:52] LABS: Hematocrit 20.5 % (37.5-50.1); Hemoglobin 6.4 g/dL (12.9-16.9)
[2021-07-11] MEDS ORDERED: Budesonide/Formoterol 160/4.5 1 PUFF INH IH SCH (22:00)
[2021-07-12] MEDS: Pantoprazole 40 MG in 0.9 % Sodium Chloride Mini Bag 100 ML IVC SCH ×2 (02:02→07:04)
[2021-07-12] MEDS: Insulin LISPRO 300 UNITS/3 ML VIAL SUBQ SCH ×5 (02:03→23:34)
[2021-07-12 04:12] LABS: Basophils # 0.1 K/mcL (0.0-0.2); Basophils % 0.7 %; Eosinophils # 0.1 K/mcL (0.0-0.6); Eosinophils % 1.3 %; Hematocrit 20.3 % (37.5-50.1); Hemoglobin 6.4 g/dL (12.9-16.9); Immature Granulocytes % 3.1 % (0-4); Lymphocytes # 1.2 K/mcL (0.6-4.6); Lymphocytes % 12.5 %; Mean Corpuscular HGB Conc 31.5 g/dL (31.6-35.5); Mean Corpuscular Hemoglobin 31.4 pg (28.0-33.3); Mean Corpuscular Volume 99.5 fL (83.0-100.0); Mean Platelet Volume 12.2 fL (9.4-12.4); Monocytes % 10.4 %; Neutrophils # 7.1 K/mcL (1.6-8.9); Nucleated Red Blood Cells 0.8 /100 WBC (0); Platelet Count 142 K/mcL (140-400); Red Blood Count 2.04 M/mcL (4.19-5.50); Red Cell Distribution Width 15.2 % (11.5-14.5); White Blood Count 9.9 K/mcL (4.3-11.1)
[2021-07-12 04:14] LABS: VBG Ionized Calcium 1.27 mmol/L (1.15-1.35)
[2021-07-12 04:28] LABS: BUN/Creatinine Ratio 43 (6-26); Blood Urea Nitrogen 37 mg/dL (8-23); Calcium 8.5 mg/dL (8.6-10.3); Carbon Dioxide 29 mEq/L (23-29); Chloride 109 mEq/L (98-107); Glucose 138 mg/dL (70-105); Magnesium 2.2 mg/dL (1.6-2.6); Osmolality,Calculated 303 (280-300); Phosphorous 2.4 mg/dL (2.7-4.5); Sodium 141 mEq/L (136-145); eGFR For African Americans > 60 (> 60); eGFR For Non-African Americans > 60 (> 60)
[2021-07-12] MEDS: cefTRIAXone 1,000 MG in 0.9 % Sodium Chloride 10 ML IVP SCH (07:00)
[2021-07-12] MEDS ORDERED: Metoprolol XL (24 HR) Succ 50 MG TAB.ER.24H PO SCH (09:00)
[2021-07-12] MEDS ORDERED: 0.9 % Sodium Chloride 250 ML ONE (09:54)
[2021-07-12] MEDS ORDERED: Lidocaine -MPF 2% 5 ML VIAL ONE (13:06)
[2021-07-12] MEDS ORDERED: *HR* Etomidate 40 MG/20 ML VIAL IVP ONE (13:07)
[2021-07-12] MEDS ORDERED: *HR* Propofol 200 MG/20 ML VIAL IVP ONE (13:07)
[2021-07-12 14:55] LABS: Hematocrit 22.5 % (37.5-50.1); Hemoglobin 7.1 g/dL (12.9-16.9)
[2021-07-12] MEDS ORDERED: Ondansetron 4 MG/2 ML VIAL IVP PRN (15:52)
[2021-07-12] MEDS ORDERED: *HR* Dextrose 50 % in Water (Syg) 50 ML SYRINGE IVP PRN (15:52)
[2021-07-12] MEDS ORDERED: Acetaminophen 325 MG TABLET PO PRN (15:52)
[2021-07-12] MEDS ORDERED: Ipratropium/Albuterol Neb 3 ML IH PRN (15:52)
[2021-07-12] MEDS ORDERED: D5% in Water 1,000 ML IVC PRN (15:52)
[2021-07-12] MEDS ORDERED: Dextrose 4 GM Chewable Tablets PO PRN ×2 (15:52)
[2021-07-12] MEDS ORDERED: Naloxone 0.4 MG/ML INJ IVP PRN (15:52)
[2021-07-12] MEDS: Budesonide/Formoterol 160/4.5 1 PUFF INH IH SCH (20:33)
[2021-07-13 03:06] LABS: Basophils # 0.1 K/mcL (0.0-0.2); Basophils % 0.9 %; Eosinophils # 0.2 K/mcL (0.0-0.6); Eosinophils % 1.8 %; Hematocrit 21.3 % (37.5-50.1); Hemoglobin 6.9 g/dL (12.9-16.9); Immature Granulocytes % 3.5 % (0-4); Lymphocytes % 12.7 %; Mean Corpuscular HGB Conc 32.4 g/dL (31.6-35.5); Mean Corpuscular Hemoglobin 31.4 pg (28.0-33.3); Mean Corpuscular Volume 96.8 fL (83.0-100.0); Mean Platelet Volume 12.2 fL (9.4-12.4); Monocytes # 0.9 K/mcL (0.0-1.3); Monocytes % 10.4 %; Neutrophils # 5.8 K/mcL (1.6-8.9); Platelet Count 139 K/mcL (140-400); Red Cell Distribution Width 15.6 % (11.5-14.5); Segmented Neutrophils % 70.7 %; White Blood Count 8.2 K/mcL (4.3-11.1)
[2021-07-13 03:25] LABS: BUN/Creatinine Ratio 32 (6-26); Blood Urea Nitrogen 24 mg/dL (8-23); Calcium 8.2 mg/dL (8.6-10.3); Carbon Dioxide 25 mEq/L (23-29); Chloride 108 mEq/L (98-107); Glucose 113 mg/dL (70-105); Osmolality,Calculated 295 (280-300); Potassium 3.7 mEq/L (3.5-5.1); Sodium 140 mEq/L (136-145); eGFR For African Americans > 60 (> 60); eGFR For Non-African Americans > 60 (> 60)
[2021-07-13] MEDS: Insulin LISPRO 300 UNITS/3 ML VIAL SUBQ SCH ×3 (05:38→16:55)
[2021-07-13] MEDS: Metoprolol XL (24 HR) Succ 50 MG TAB.ER.24H PO SCH (10:04)
[2021-07-13] MEDS ORDERED: 0.9 % Sodium Chloride 250 ML ONE (10:24)
[2021-07-13] MEDS: Budesonide/Formoterol 160/4.5 1 PUFF INH IH SCH ×2 (11:04→20:15)
[2021-07-13] MEDS: Furosemide 40 MG TABLET PO SCH (13:28)
[2021-07-13 14:16] LABS: % Iron Saturation 9 % (20-55); Iron 27 mcg/dL (65-175); Transferrin 211 mg/dL (203-362)
[2021-07-13 15:34] LABS: Folate 16.2 ng/mL (3.0-16.0)
[2021-07-13] MEDS: *HR* Metformin 500 MG TABLET PO SCH (17:07)
[2021-07-13] MEDS: Sacubitril/Valsartan 49/51 MG 1 TABLET PO SCH (20:39)
[2021-07-13] MEDS ORDERED: Gabapentin 300 MG CAPSULE PO SCH (21:00)
[2021-07-13] MEDS ORDERED: Insulin LISPRO 300 UNITS/3 ML VIAL SUBQ SCH (21:00)
[2021-07-14] MEDS ORDERED: 0.9 % Sodium Chloride 1,000 ML IVC ONE (00:34)
[2021-07-14 01:37] LABS: Hematocrit 22.2 % (37.5-50.1); Hemoglobin 7.4 g/dL (12.9-16.9); Mean Corpuscular HGB Conc 33.3 g/dL (31.6-35.5); Mean Corpuscular Hemoglobin 32.6 pg (28.0-33.3); Mean Corpuscular Volume 97.8 fL (83.0-100.0); Platelet Count 111 K/mcL (140-400); Red Blood Count 2.27 M/mcL (4.19-5.50); White Blood Count 7.8 K/mcL (4.3-11.1)
[2021-07-14] MEDS: Budesonide/Formoterol 160/4.5 1 PUFF INH IH SCH (07:35)
[2021-07-14] MEDS: Insulin LISPRO 300 UNITS/3 ML VIAL SUBQ SCH (07:57)
[2021-07-14 08:00] VITALS: TEMP 97.4; O2SAT 96
[2021-07-14 08:41] VITALS: BP 94/57; PULSE 47
[2021-07-14] MEDS: Sacubitril/Valsartan 49/51 MG 1 TABLET PO SCH (08:57)
[2021-07-14] MEDS: Furosemide 40 MG TABLET PO SCH (08:57)
[2021-07-14] MEDS: Metoprolol XL (24 HR) Succ 50 MG TAB.ER.24H PO SCH (08:58)
[2021-07-14] MEDS: *HR* Metformin 500 MG TABLET PO SCH (08:58)
[2021-07-14] MEDS ORDERED: Spironolactone 25 MG TABLET PO SCH (09:00)
[2021-07-14] MEDS ORDERED: Cholecalciferol (D-3) 1,000 UNIT (25MCG) TABLET PO SCH (09:00)
[2021-07-14] MEDS ORDERED: Iron Sucrose Complex 400 MG in 0.9 % Sodium Chloride 250 ML IVPB ONE (09:00)
[2021-07-14] MEDS ORDERED: Cyanocobalamin (B-12) 1,000 MCG TABLET PO SCH (09:00)
[2021-07-14] MEDS ORDERED: allopurinoL 100 MG TABLET PO SCH (09:00)
== END 2021-07-14 12:14 | disposition home or self-care (01) | DRG 377 ==
LOC: EMEROOARM 01:55 → 3ANU 01:55 → 2NNU 04:25 → ICNU 05:12 → 3ANU 07-12 16:32
PROVIDERS: ADMIT Internal Medicine; ATTEND Internal Medicine